=== PATIENT | female | born 1990 | race Caucasian/White ===

== ENCOUNTER 2018-01-30 16:31 | Emergency (ER) | payer MEDICAID, SELFPAY ==
[2018-01-30 16:32] VITALS: BP 108/74; PULSE 77; RESP 16; TEMP 36.8; O2SAT 96; BMI 25.0
--- NOTE | 2018-01-30 16:40 | RAD_ITS ---
STUDY: X-RAY - LEFT ANKLE REASON FOR EXAM: Female, 27 years old. Trauma TECHNIQUE: 3 view(s) of the ankle. COMPARISON: None. FINDINGS: Normal visualized distal tibia and fibula. Normal medial and lateral malleoli. Normal tibiotalar articulation and ankle mortise. Normal visualized talus and calcaneus. The visualized subtalar, talonavicular, calcaneocuboid and tarsal articulations are normal. There is soft tissue swelling over the lateral malleolus. RAD/Ankle min 3 Views IMPRESSION: There is no evidence of fracture or dislocation. There is soft tissue swelling over the lateral malleolus. Electronically Signed: Taran Garcia MD at 16:52 EDT , Service support ,
--- NOTE | 2018-01-30 17:38 | ED.DCSUM_ITS ---
- ER Visit Summary Date of Service: 01/30/18 Chief Complaint: Left ankle injury History of Present Illness: The patient is a 27 F presenting with left ankle injury. Patient states this occurred on Monday. She was running on a wet floor and slipped. She twisted her left ankle. She did not hit her head or lose consciousness. She has tried ibuprofen at home. She has had painful ambulation since. Denies other complaints. Physical Examination: Vitals are stable. Patient is afebrile. Alert no acute distress. HEENT exam is unremarkable. Lungs are clear and equal bilaterally. Heart is regular rate and rhythm. Extremities lateral ankle tenderness and swelling. No fifth metatarsal tenderness, no Achilles tendon tenderness, no proximal fibular tenderness. Skin is warm and dry. No focal neurologic deficit. Remainder of exam is unremarkable. Emergency Department Course and Treatment: X-ray left ankle shows there is no evidence of fracture or dislocation. There is soft tissue swelling over the lateral malleolus. She is advised to ice and elevate. She is given a boot orthosis. She is advised to follow-up with her primary care physician. Advised return to ED for worsening complaints. Disposition: Discharge home Impression: Left ankle sprain This note was generated with [employer] dictation software. It may contain incorrect words, spelling, and punctuation that were not noted in review of the chart prior to signing ED Disposition - Plan for ED Patient: Chief Complaint: Lower Extremity Injury Referrals: Yogi Moeller,Out of [Primary Care Provider] -
--- NOTE | 2018-01-30 17:38 | ED.DEP ---
ED Disposition - Plan for ED Patient: Chief Complaint: Lower Extremity Injury Instructions: ED Sprain Ankle W X Ray Prescriptions: Naproxen [Naprosyn] 500 mg PO BID PRN #20 tablet Referrals: [facility],Out of [Primary Care Provider] -
[2018-01-30 18:02] VITALS: BP 118/75; PULSE 82; RESP 16; O2SAT 98
== END 2018-01-30 18:03 | disposition home or self-care (01) ==
LOC: ED 17:46
PROVIDERS: Emergency Provider Emergency Medicine
DX: S93.402A Sprain of unspecified ligament of left ankle, initial encounter (principal); W01.0XXA Fall on same level from slipping, tripping and stumbling without subsequent striking against object, initial encounter; Y93.02 Activity, running; Y92.9 Unspecified place or not applicable
CPT/HCPCS: 73610; 99282

== ENCOUNTER → 2022-03-29 | Outpatient (CLI) | payer BC, MEDICAID, SELFPAY ==
[2022-03-29 15:03] LABS: Absolute Lymphocyte Count 1.56 X10^3/uL (0.83-4.51); Absolute Neutrophil Count 3.5 X10^3/uL (2.0-7.7); Basophil# 0.03 X10^3/uL; Basophil% 0.5 % (0-1); Eosinophil# 0.11 X10^3/uL; Hematocrit 36.7 % (37-47); Hemoglobin 11.7 g/dL (12.0-15.0); Lymphocyte # 1.56 X10^3/ul (0.83-4.51); Lymphocyte % 27.7 % (19-41); Mean Corp Hgb Conc 31.9 g/dL (32-36); Mean Corpuscular Volume 91.1 fL (81-99); Mean Platelet Vol. 9.8 fl (6.2-12.0); Monocyte# 0.41 X10^3/uL; Monocyte% 7.3 % (0-10); NRBC Flagged by Analyzer 0 % (0-5); Neutrophil # 3.51 X10^3/uL (2.7-7.7); Neutrophil % 62.3 % (47-70); Platelet Count 340 K/mm3 (150-450); RBC Distribution Width CV 14.1 % (11.6-14.6); RBC Distribution Width SD 47.4 fl (35.1-43.9); Red Blood Count 4.03 M/mm3 (4.2-5.4); White Blood Count 5.6 K/mm3 (4.4-11.0)
[2022-03-29 15:48] LABS: ALB/GLOB Ratio 1.1 RATIO (0.9-2.4); AST(SGOT) 13 U/L (15-37); Alanine Aminotransfer ALT/SGPT 21 U/L (13-56); Albumin, Serum 3.5 g/dL (3.2-5.0); Alkaline Phosphatase 65 U/L (45-117); Anion Gap 5 (5-15); BUN 12 mg/dL (7-18); BUN/Creat Ratio 17.8 RATIO (10-20); Chloride 108 mmol/L (98-107); Cholesterol 157 mg/dL (200); Creatinine, Serum 0.67 mg/dL (0.55-1.02); EST Glomerular Filtration Rate 107 mL/min (>60); Est Glom Filt Rate - Afr Amer 130 mL/min (>60); Globulin 3.3 g/dL (2.2-4.2); Glucose 76 mg/dL (74-106); High Density Lipoprotein 48 mg/dL; Potassium 3.8 mmol/L (3.5-5.1); Protein, Total 6.8 g/dL (6.4-8.2); Sodium Level 140 mmol/L (136-145); Thyroid Stim Hormone (TSH) 0.74 uIU/mL (0.358-3.74); Triglycerides 54 mg/dL; Very Low Density Lipoprotein 11 mg/dL (5-40)
[2022-03-29 15:54] LABS: Hemoglobin A1c 5.2 % (3.8-5.6)
[2022-03-30 21:54] LABS: Ferritin 51 ng/mL (8-252); Iron Binding Capacity,Total 293 ug/dL (250-450)
[2022-03-30 22:01] LABS: Vitamin B12 466 pg/mL (211-911)
== END | disposition home or self-care (01) ==
LOC: MFPLAB 11:47
PROVIDERS: PCP Family Medicine; Referring Provider Family Medicine; Visit Provider Family Medicine
DX: Z00.00 Encounter for general adult medical examination without abnormal findings (principal); D64.9 Anemia, unspecified; Z13.220 Encounter for screening for lipoid disorders; Z13.0 Encounter for screening for diseases of the blood and blood-forming organs and certain disorders involving the immune mechanism; Z13.1 Encounter for screening for diabetes mellitus; Z13.29 Encounter for screening for other suspected endocrine disorder
CPT/HCPCS: 36415; 80053; 80061; 82607; 82728; 83036; 83550; 84443; 85025

== ENCOUNTER → 2022-08-03 | Outpatient (CLI) | payer BC, MEDICAID, SELFPAY ==
[2022-08-15 16:14] LABS: HPV APTIMA, High Risk Negative (Negative); HPV Reflexed? YES, CHARGE PATIENT
== END | disposition home or self-care (01) ==
LOC: LABSPEC 17:51
PROVIDERS: PCP Family Medicine; Visit Provider Nurse Practitioner Family
DX: Z01.419 Encounter for gynecological examination (general) (routine) without abnormal findings (principal)
CPT/HCPCS: 87624; 88175; G0145

== ENCOUNTER → 2025-04-02 | Outpatient (CLI) | payer BC, SELFPAY ==
--- NOTE | 2025-04-02 17:10 | RAD_ITS ---
PROCEDURE: CHEST PA AND LATERAL 04/02/2025 REASON FOR EXAM: LYMPHADENOPATHY TECHNIQUE: CHEST PA AND LATERAL COMPARISON: None. FINDINGS: Hardware: None. Heart: No cardiomegaly. Mediastinum: Unremarkable. Lungs: Clear. No pleural effusion or pneumothorax. Bones: No acute bony abnormalities. RAD/Chest PA and Lateral IMPRESSION: No acute cardiopulmonary abnormalities. Reading Location: [id number]
[2025-04-02 18:12] LABS: AST(SGOT) 22 U/L (<=31); Alanine Aminotransfer ALT/SGPT 57 U/L (<=34); Albumin, Serum 4.5 g/dL (3.5-5.0); Alkaline Phosphatase 56 U/L (35-104); Anion Gap 12 (5-15); BUN 11 mg/dL (4-19); BUN/Creat Ratio 18.1 RATIO (10-20); Calcium,Total 9.0 mg/dL (7.6-11.0); Carbon Dioxide 22.6 mmol/L (21.0-32.0); Chloride 104 mmol/L (98-108); Globulin 2.8 g/dL (2.2-4.2); Glucose 94 mg/dL (70-99); Potassium 4.3 mmol/L (3.3-5.1)
[2025-04-02 18:57] LABS: Hematocrit 39.6 % (37-47); Hemoglobin 12.7 g/dL (12.0-15.0); Immature Granulocytes Count 0.020 X10^3/uL (0.0-0.0); Mean Corp Hgb Conc 32.1 g/dL (32-36); Mean Corpuscular Volume 89.6 fL (81-99); Mean Platelet Vol. 9.7 fl (6.2-12.0); NRBC Flagged by Analyzer 0 % (0-5); Platelet Count 318 K/mm3 (150-450); RBC Distribution Width CV 14.6 % (11.6-14.6); RBC Distribution Width SD 47.8 fl (35.1-43.9); Red Blood Count 4.42 M/mm3 (4.2-5.4); White Blood Count 7.4 K/mm3 (4.4-11.0)
== END | disposition home or self-care (01) ==
LOC: MTLAB 17:03
PROVIDERS: PCP Family Medicine; Referring Provider Family Medicine; Visit Provider Family Medicine
DX: R59.1 Generalized enlarged lymph nodes (principal)
CPT/HCPCS: 36415; 71046; 80053; 85025

== ENCOUNTER 2025-04-03 16:26 | Outpatient (CLI) | payer BC, SELFPAY ==
[2025-04-03 19:57] LABS: Hepatitis B Surface Antigen Nonreactive (Nonreactive); Hepatitis C Antibody Nonreactive (Nonreactive)
== END 2025-04-03 23:59 | disposition home or self-care (01) ==
LOC: MFPLAB 16:29
PROVIDERS: Family Medicine; PCP Family Medicine; Referring Provider Family Medicine; Visit Provider Family Medicine
DX: R79.89 Other specified abnormal findings of blood chemistry (principal)
CPT/HCPCS: 36415; 86706; 86803; 87340

== ENCOUNTER → 2025-04-10 | Outpatient (CLI) | payer BC, SELFPAY ==
--- OUTSIDE RECORDS SUMMARY | 2025-04-10 20:14 | XMS RPT_ITS | CCD ---
Author Organization [facility] Care Team Providers Care Explosive Operator Bomb Name Role Phone Unavailable Primary Care Provider UnavailDIPESH Aguilera Attending Unavailable Truid CARVAJAL, Dr. Shen Chapman Primary Care Provider [phone] Trudi CARVAJAL, Dr. Shen Chapman Attending Provider [phone] Dr. Shen Brush MD Referring Provider Sehn Brush Attending Unavailable Shen Brush Referring Unavailable Shen Brush Primary Care Unavailable Shen Brush Attending Unavailable Shen Brush Referring Unavailable Shen Brush Primary Care Unavailable Shen Brush Attending Unavailable Shen Brush Referring Unavailable Shen Brush Primary Care Unavailable Medications Current Medications Medication Drug Class(es) Dates Sig (Normalized) Sig (Original) Biotin (2 sources) BIOTIN ORAL Take by mouth. Active BIOTIN ORAL Take by mouth. 0 Active Comment on above: Take by mouth. ergocalciferol, vitamin D2, (VITAMIN D2 ORAL) (2 sources) ergocalciferol, vitamin D2, (VITAMIN D2 ORAL) Take by mouth. Active ergocalciferol, vitamin D2, (VITAMIN D2 ORAL) Take by mouth. 0 Active Comment on above: Take by mouth. hydrocortisone 10 mg/ml / neomycin 3.5 mg/ml / polymyxin b 24810 unt/ml otic suspension (1 source) Aminoglycoside Antibacterial, Polymyxin-class Antibacterial, Corticosteroid Start: 03-22-2025 End: 03-27-2025 ikzegyzc-xbetphelo-ln drocortisone (CORTISPORIN) 3.5-10,000-1 mg/mL-unit/mL-% otic suspension Use 4 drops in the right ear three times a day for 5 days. 10 mL 03/22/2025 03/27/2025 Active MULTI-VITAMIN ORAL (2 sources) MULTI-VITAMIN OR AL Take by mouth. Active MULTI-VITAMIN OR AL Take by mouth. 0 Active Comment on above: Take by mouth. naproxen 500 mg oral tablet (3 sources) Nonsteroidal Anti-inflammatory Drug Start: 01-31-20 18 take 1 tablet by mouth twice daily as needed Naproxen 500 MG tablet Active 500 mg PO TWICE DAILY NEEDED January 30, 2018 12:00am polymyxin b 21889 unt/ml / trimethoprim 1 mg/ml ophthalmic solution (1 source) Dihydrofolate Reductase Inhibitor Antibacterial, Polymyxin-class Antibacterial Start: 03-21-20 End: 03-28-20 take 1 drop(s) into the eye(s) four times daily trimethoprim-polymyxi n (POLYTRIM) 10,000 unit- 1 mg/mL ophthalmic solution Use 1 Drop in both eyes four times daily for 7 days. 10 mL 0 03/21/2023 03/28/2023 Active Comment on above: Use 1 Drop in both e yes four times daily for 7 days. spironolactone 100 mg oral tablet (2 sources) Aldosterone Antagonist take 1 tablet by mouth once daily spironolactone (ALDACTONE) 100 mg tablet Take 100 mg by mouth once daily. Active Comment on above: Take 100 mg by mouth once daily. tetrahydrozoline/polye thyl gly (EYE DROPS EXTRA OPHTHALMIC) (2 sources) tetrahydrozoline /poly ethyl gly (EYE DROPS EXTRA OPHTHALMIC) Use in eyes. Active tetrahydrozoline /polyethyl gly (EYE DROPS EXTRA OPHTHALMIC) Use in eyes. 0 Active Comment on above: Use in eyes. Problems Problem Classification Problem Date Documented Da te Episodic/Chronic Inflammation; infection of eye (except that caused by tuberculosis or sexually transmitteddisease) (1 source) Bilateral conjunctivitis; Translations: [Unspecified conjunctivitis] 03-21-2023 Episodic Lymphadenitis (4 sources) Lymphadenopathy; Translations: [Enlarged lymph nodes, unspecified] Onset: 03-22-2025 03-22-2025 Episodic Other ear and sense organ disorders (1 source) Impacted cerumen in right ear; Translations: [Impacted cerumen, right ear] 03-22-2025 Episodic Other ear and sense organ disorders (1 source) Impacted cerumen, right ear; Translations: [Impacted cerumen of right ear] Onset: 03-22-2025 Episodic Results Test Name Value Interpretation Reference Range Facility Hepatitis B Surface Antibody on 2025 HEP B Surf Ab REAC Normal [facility] Comment on above: Result Comment: <8.5 mIU/mL: Non-Reactive 8.5<= x <11.5 mIU/mL: Indeterminate >=11.5 mIU/mL: Reactive Non Reactive: Inconsistent with immunity less than <10 mIU/mL Reactive: Consistent with immunity greater than or equal to 10 mIU/mL Performed By: #### L 3890.6202, L3890.6102, L3890.6301 #### [facility] [address] [place], [address] Hepatitis C Antibodyon 04-03 Hepatitis C Ab Non-Reactive Normal Nonreactive [facility] Comment on above: Result Comment: Reac tive: Presumptive evidence of antibodies to HCV. Follow CDC recommendations for supplemental testing. Non-Reactive: Antibodies to HCV were not detected; does not exclude the possibility of exposure to HCV Reactive Results are presumptive evidence of antibodies to HCV. Follow CDC recommendations for supplemental testing. Order confirmation testing: HCV Quant by PCR testing - HCVPCR #[id number] Non Reactive: < 0.8 Equivocal: >/= 0.8 to < 1.0 Reactive: >/= 1.0 The CDC requires that a reactive/equivocal HCV antibody result be sent out for confirmation. HCV Quant by PCR testing. Performed By: #### L 3890.6202, L3890.6102, L3890.6301 #### [facility] [address] [facility] [place], [place], [id number] L3890.6102on 2025 HEP B Surf Ag Non-Reactive Normal Nonreactive [facility] Comment on above: Result Comment: Reac tive: Presumptive evidence of HBV. Repeatedly reactive samples must be confirmed using a neutralization test ([employer] HBsAg Confirmatory Test) Non-Reactive: HBsAg not detected; does not exclude the possibility of exposure to HBV Performed By: #### L 3890.6202, L3890.6102, L3890.6301 #### [facility] [address] [place], [place], [id number] Laboratory - Microbiology an d Antimicrobial susceptibilityOrdered By: Hao Erickson on 2025 HBV surface Ag Ql (S) Non-Reactive Nonreactive [facility] Comment on above: Reactive: Presumptiv e evidence of HBV. Repeatedly reactive samples must be confirmed using a neutralization test ([employer] HBsAg Confirmatory Test)Non-Reactive: HBsAg not detected; does not exclude the possibility of exposure to HBV Serum hepatitis B virus surf darshana antibody detectionOrdered By: Hao Erickson on 2025 HBV surface Ab Ql (S) REAC [facility] Comment on above: <8.5 mIU/mL: Non-Rebecca ctive8.5<= x <11.5 mIU/mL: Indeterminate>=11.5 mIU/mL: Reactive Non Reactive: Inconsistent with immunity less than <10 mIU/mL Reactive: Consistent with immunity greater than or equal to 10 mIU/mL Absolute lymphocyte countOrd ered By: Shen Brush on 04-02-2025 Lymphocytes Auto (Unsp spec) [#/Vol] 2.88 10*3/uL 0.83-4.51 [facility] Absolute neutrophil countOrd ered By: Shen Brush on 04-02-2025 Neutrophils (Bld) [#/Vol] 3.5 10*3/uL 2.0-7.7 [facility] Anion gap in Serum or Plasma Ordered By: Shen Brush on 04-02-2025 Anion gap [Moles/Vol] 12 mmol/L 12-26 [facility] Automated lymphocyte count a s percentage of total leukocytesOrdered By: Shen Brush on 04-02-2025 Lymphocytes/100 WBC Auto (Unsp spec) 39.1 % [facility] BUN/creatinine ratioOrdered By: Shen Brush on 04-02-2025 Urea nitrogen/Creatinine [Mass ratio] 18.1 mg/mg 06-02 [facility] Basophil percentageOrdered B y: Shen Brush on 04-02-2025 Basophils/100 WBC (Bld) 0.7 % 0-[address] [facility] Bilirubin, totalOrdered By: Shen Brush on 04-02-2025 Bilirubin [Mass/Vol] 0.31 mg/dL 0.00-1.[address] [facility] CBC W/Diff, Automatedon 03-15 Absolute Lymph 2.88 X10 3/uL Normal 0.83-4.51 [facility] Comment on above: Performed By: #### L 500.4050, L100.0100 #### [facility] [address] [place], [address] Absolute Neut 3.5 X10 3/uL Normal 2.0-7.7 [facility] Comment on above: Performed By: #### L 500.4050, L100.0100 #### [facility] [address] [place], [address] Basophils/100 WBC (Bld) 0.7 % Normal 0-[address] [facility] Comment on above: Performed By: #### L 500.4050, L100.0100 #### [facility] [address] [place], [address] Eosinophils/100 WBC (Bld) 4.3 % Normal 0-5 [facility] Comment on above: Performed By: #### L 500.4050, L100.0100 #### [facility] [address] [place], [address] Erythrocyte distribution width (RBC) [Ratio] 14.6 % Normal 11.6-14.6 [facility] Comment on above: Performed By: #### L 500.4050, L100.0100 #### [facility] [address] [place], [address] Hematocrit (Bld) [Volume fraction] 39.6 % Normal 37-47 [facility] Comment on above: Performed By: #### L 500.4050, L100.0100 #### [facility] [address] [place], [address] Hemoglobin (Bld) [Mass/Vol] 12.7 g/dL Normal 12.0-15.0 [facility] Comment on above: Performed By: #### L 500.4050, L100.0100 #### [facility] [address] [place], [address] IG% 0.300 Normal 0.0-0.9 [facility] Comment on above: Result Comment: IG% - Immature Granulocytes (promyelocytes, myelocytes and metamyelocytes) > 1% indicates that a LEFT SHIFT is Present. Performed By: #### L 500.4050, L100.0100 #### [facility] [address] [place], [address] Lymphocytes/100 WBC (Bld) 39.1 % Normal 19-41 [facility] Comment on above: Performed By: #### L 500.4050, L100.0100 #### [facility] [address] [place], [address] MCH (RBC) [Entitic mass] 28.7 pg Normal 27.0-32.0 [facility] Comment on above: Performed By: #### L 500.4050, L100.0100 #### [facility] [address] [place], [address] MCHC (RBC) [Mass/Vol] 32.1 g/dL Normal 32-36 [facility] Comment on above: Performed By: #### L 500.4050, L100.0100 #### [facility] [address] [place], [address] MCV (RBC) [Entitic vol] 89.6 fL Normal 81-99 [facility] Comment on above: Performed By: #### L 500.4050, L100.0100 #### [facility] [address] [place], [address] Monocytes/100 WBC (Bld) 8.0 % Normal 0-[address] [facility] Comment on above: Performed By: #### L 500.4050, L100.0100 #### [facility] [address] [place], [address] Neutrophils/100 WBC (Bld) 47.6 % Normal 47-70 [facility] Comment on above: Performed By: #### L 500.4050, L100.0100 #### [facility] [address] [place], [address] Nucleated RBC (Bld) [#/Vol] 0 10*3/uL Normal 0-5 [facility] Comment on above: Performed By: #### L 500.4050, L100.0100 #### [facility] [address] [place], [address] Platelet mean volume (Bld) [Entitic vol] 9.7 fL Normal 6.2-12.0 [facility] Comment on above: Performed By: #### L 500.4050, L100.0100 #### [facility] [address] [place], [address] Platelets (Bld) [#/Vol] 318 10*3/uL Normal 150-450 [facility] Comment on above: Performed By: #### L 500.4050, L100.0100 #### [facility] [address] [place], [address] RBC (Bld) [#/Vol] 4.42 10*6/uL Normal 4.2-5.4 [facility] Comment on above: Performed By: #### L 500.4050, L100.0100 #### [facility] [address] [place], [address] RDW SD 47.8 fl High 35.1-43.9 [facility] Comment on above: Performed By: #### L 500.4050, L100.0100 #### [facility] [address] [facility] [place], [address] WBC (Bld) [#/Vol] 7.4 10*3/uL Normal 4.4-11.0 [facility] Comment on above: Performed By: #### L 500.4050, L100.0100 #### [facility] [address] [facility] [place], [address] Carbon dioxide, total [Moles /volume] in Central venous bloodOrdered By: Shen Brush on 04-02-2025 CO2 [Moles/Vol] 22.6 mmol/L 21.0-32.0 [facility] Chest PA and Lateralon 04-02 Chest PA and Lateral [facility] [address] [place] [address] Chest PA and Lateral MR#: [id number] Acct: [id number] Name: KING JUNG Rep #: [id number] : 1990 F 34 From: Scott Christina MD PCP: Dr. Shen Brush MD Status: REG CLI Study: Chest PA and Lateral Date of Exam: 04/02/25 Exam# [id number] Ordering Dr: Shen Brush MD PROCEDURE: CHEST PA AND LATERAL 04/02/2025 REASON FOR EXAM: LYMPHADENOPATHY TECHNIQUE: CHEST PA AND LATERAL COMPARISON: None. FINDINGS: Hardware: None. Heart: No cardiomegaly. Mediastinum: Unremarkable. Lungs: Clear. No pleural effusion or pneumothorax. Bones: No acute bony abnormalities. RAD/Chest PA and Lateral IMPRESSION: No acute cardiopulmonary abnormalities. Reading Location: [facility] CC: Dr. Shen Brush MD Cash Register Mechanic: Signed Normal [facility] Chloride assayOrdered By: Linda Brush on 04-02-2025 Chloride [Moles/Vol] 104 mmol/L 98-[address] [facility] Comprehensive Metabolic Prof ilon 04-02-2025 Albumin [Mass/Vol] 4.5 g/dL Normal 3.5-5.0 [facility] Comment on above: Performed By: #### L 500.4050, L100.0100 #### [facility] [address] [place], [address] Albumin/Globulin [Mass ratio] 1.6 {ratio} Normal 0.9-2.4 [facility] Comment on above: Performed By: #### L 500.4050, L100.0100 #### [facility] [address] [place], [address] ALK PHOS 56 U/L Normal 35-104 [facility] Comment on above: Performed By: #### L 500.4050, L100.0100 #### [facility] [address] [place], [address] ALT [Catalytic activity/Vol] 57 U/L High <=34 [facility] Comment on above: Performed By: #### L 500.4050, L100.0100 #### [facility] [address] [place], [address] AST [Catalytic activity/Vol] 22 U/L Normal <=31 [facility] Comment on above: Performed By: #### L 500.4050, L100.0100 #### [facility] [address] [place], [address] Bilirubin [Mass/Vol] 0.31 mg/dL Normal 0.00-1.[address] [facility] Comment on above: Performed By: #### L 500.4050, L100.0100 #### [facility] [address] [place], [address] BUN/CRE 18.1 RATIO Normal 10-20 [facility] Comment on above: Performed By: #### L 500.4050, L100.0100 #### [facility] [address] [place], [address] Calcium [Mass/Vol] 9.0 mg/dL Normal 7.6-11.0 [facility] Comment on above: Performed By: #### L 500.4050, L100.0100 #### [facility] [address] [place], [address] Chloride [Moles/Vol] 104 mmol/L Normal 98-[address] [facility] Comment on above: Performed By: #### L 500.4050, L100.0100 #### [facility] [address] [place], [address] CO2 [Moles/Vol] 22.6 mmol/L Normal 21.0-32.0 [facility] Comment on above: Performed By: #### L 500.4050, L100.0100 #### [facility] [address] [place], [address] Creatinine [Mass/Vol] 0.62 mg/dL Low 0.70-1.20 [facility] Comment on above: Performed By: #### L 500.4050, L100.0100 #### [facility] [address] [place], [address] GAP 12 Normal 5-15 [facility] Comment on above: Performed By: #### L 500.4050, L100.0100 #### [facility] [address] [place], [address] GFR/1.73 sq M.predicted among non-blacks MDRD (S/P/Bld) [Vol rate/Area] 119 mL/min/{1.73_m2} Normal >60 [facility] Comment on above: Result Comment: mL/m in/1.73m2 CKD-EPI Creatinine Equation (2020) Performed By: #### L 500.4050, L100.0100 #### [facility] [address] [place], [address] Globulin (S) [Mass/Vol] 2.8 g/dL Normal 2.2-4.[address] [facility] Comment on above: Performed By: #### L 500.4050, L100.0100 #### [facility] [address] [place], [address] Glucose [Mass/Vol] 94 mg/dL Normal 70-99 [facility] Comment on above: Performed By: #### L 500.4050, L100.0100 #### [facility] [address] [place], [address] Potassium [Moles/Vol] 4.3 mmol/L Normal 3.3-5.1 [facility] Comment on above: Performed By: #### L 500.4050, L100.0100 #### [facility] [address] [place], [address] Sodium [Moles/Vol] 138 mmol/L Normal 133-145 [facility] Comment on above: Performed By: #### L 500.4050, L100.0100 #### [facility] [address] [place], [address] T PROT 7.2 g/dL Normal 5.9-8.4 [facility] Comment on above: Performed By: #### L 500.4050, L100.0100 #### [facility] [address] [place], [address] Urea nitrogen [Mass/Vol] 11 mg/dL Normal 4-19 [facility] Comment on above: Performed By: #### L 500.4050, L100.0100 #### [facility] [address] [place], [address] Eosinophil percentageOrdered By: Shen Brush on 04-02-2025 Eosinophils/100 WBC (Bld) 4.3 % 0-5 [facility] Erythrocyte distribution wid th ratioOrdered By: Shen Brush on 04-02-2025 Erythrocyte distribution width (RBC) [Ratio] 14.6 % 11.6-14.6 [facility] Erythrocyte distribution wid th standard deviationOrdered By: Shen Brush on 04-02-2025 Erythrocyte distribution width (RBC) [Ratio] 47.8 fl High 35.1-43.9 [facility] Glomerular filtration rate ( GFR) estimation/1.73 sq m using serum, plasma, or whole bOrdered By: Shen Brush on 04-02-2025 GFR/1.73 sq M.predicted among non-blacks MDRD (S/P/Bld) [Vol rate/Area] 119 mL/min/{1.73_m2} >60 [facility] Comment on above: mL/min/1.73m2 CKD-EP I Creatinine Equation (2020) Hematocrit Auto (Bld) [Volum e fraction]Ordered By: Shen Brush on 04-02-2025 Hematocrit (Bld) [Volume fraction] 39.6 % 37-47 [facility] Hemoglobin measurementOrdere d By: Shen Brush on 04-02-2025 Hemoglobin (Bld) [Mass/Vol] 12.7 g/dL 12.0-15.0 [facility] Immature granulocytes/100 WB C Auto (Bld)Ordered By: Shen Brush on 04-02-2025 Immature granulocytes/100 WBC (Bld) 0.300 % 0.0-0.9 [facility] Comment on above: IG% - Immature Granu locytes (promyelocytes, myelocytes and metamyelocytes) > 1% indicates that a LEFT SHIFT is Present. Laboratory - Chemistry and C hemistry - challengeOrdered By: Shen Brush on 04-02-2025 AST [Catalytic activity/Vol] 22 U/L <32 [facility] MCV (mean corpuscular volume ) determinationOrdered By: Shen Brush on 04-02-2025 MCV (RBC) [Entitic vol] 89.6 fL 81-[address] [facility] Mean corpuscular hemoglobin (MCH) determinationOrdered By: Shen Brush on 04-02-2025 MCH (RBC) [Entitic mass] 28.7 pg 27.0-32.0 [facility] Mean corpuscular hemoglobin concentration (MCHC) determinationOrdered By: Shen Brush on 04-02-2025 MCHC (RBC) [Mass/Vol] 32.1 g/dL 32-36 [facility] Mean platelet volume determi nationOrdered By: Shen Brush on 04-02-2025 Platelet mean volume (Bld) [Entitic vol] 9.7 fL 6.2-12.0 [facility] Monocyte percentageOrdered B y: Shen Brush on 04-02-2025 Monocytes/100 WBC (Bld) 8.0 % 0-[address] [facility] Neutrophil percentageOrdered By: Shen Brush on 04-02-2025 Neutrophils/100 WBC (Bld) 47.6 % 47-70 [facility] Nucleated red blood cell per centageOrdered By: Shen Brush on 04-02-2025 Nucleated RBC/100 WBC (Bld) [Ratio] 0 % 0-5 [facility] Platelet countOrdered By: Linda Brush on 04-02-2025 Platelets (Bld) [#/Vol] 318 10*3/uL 150-450 [facility] Potassium measurement (mass/ volume)Ordered By: Shen Brush on 04-02-2025 Potassium (Unsp spec) [Mass/Vol] 4.3 mmol/L 3.3-5.1 [facility] RBC Auto (Bld) [#/Vol]Ordere d By: Shen Brush on 04-02-2025 RBC (Bld) [#/Vol] 4.42 10*6/uL 4.2-5.4 [facility] Serum creatinine measurement (mass/volume)Ordered By: Shen Brush on 04-02-2025 Creatinine [Mass/Vol] 0.62 mg/dL Low 0.70-1.20 [facility] Serum globulin measurementOr dered By: Shen Brush on 04-02-2025 Globulin (S) [Mass/Vol] 2.8 g/dL 2.2-4.2 [facility] Serum glucose measurement (m ass/volume)Ordered By: Shen Brush on 04-02-2025 Glucose [Mass/Vol] 94 mg/dL 70-99 [facility] Serum or plasma alanine stephens otransferase (ALT) measurementOrdered By: Shen Brush on 04-02-2025 ALT [Catalytic activity/Vol] 57 U/L High <35 [facility] Serum or plasma albumin masoud urement (mass/volume)Ordered By: Shen Brush on 04-02-2025 Albumin [Mass/Vol] 4.5 g/dL 3.5-5.0 [facility] Serum or plasma albumin/glob ulin mass ratioOrdered By: Shen Brush on 04-02-2025 Albumin/Globulin [Mass ratio] 1.6 {ratio} 0.9-2.4 [facility] Serum or plasma alkaline shari sphatase measurementOrdered By: Shen Brush on 04-02-2025 ALP [Catalytic activity/Vol] 56 U/L 35-104 [facility] Serum or plasma calcium masoud urement (mass/volume)Ordered By: Shen Brush on 04-02-2025 Calcium [Mass/Vol] 9.0 mg/dL 7.6-11.0 [facility] Serum or plasma urea nitroge n measurement (mass/volume)Ordered By: Shen Brush on 04-02-2025 Urea nitrogen [Mass/Vol] 11 mg/dL 4-19 [facility] Sodium levelOrdered By: Shen Brush on 04-02-2025 Sodium [Moles/Vol] 138 mmol/L 133-145 [facility] Total proteinOrdered By: Phani Brush on 04-02-2025 Protein [Mass/Vol] 7.2 g/dL 5.9-8.4 [facility] White blood cell (WBC) count Ordered By: Shen Brush on 04-02-2025 WBC (Bld) [#/Vol] 7.4 10*3/uL 4.4-11.0 [facility] CNOVon 03-22-2025 CNOV Office Visit ([facility]) ---- KING JUNG ([id number]) 1990 F Date Time Provider Department 03/22/25 8:00 AM DIPESH VINCENT During your visit today, we recorded the following information about you: Temperature Pulse Respiration Blood pressure 98.5 degrees 80/minute 18/minute 110/72 Weight 74.1 kg Dipesh Vincent APRN.CNP 03/22/2025 9:01 AM Signed [facility] Subjective King Jung is a 34 year old female. Patient presents with: Neck Mass: Bumps on neck, swollen x 4 days HPI Swollen Lymph Node: - Noticed a swollen lymph node on the neck. - Denies pain associated with the lymph node. - Expressed concern about the possibility of cancer. Ear Pain: - Reports pain behind the ear, especially when wearing sunglasses. - Suspects the pain might be related to an ear infection. - Has not seen a primary care provider in a few years. Review of Systems Neck: (+) cervical lymph node swelling, (-) neck pain Ears/Nose/Mouth/Thr oat: (+) right ear pain Skin: (+) tender scalp lump Objective BP 110/72 Pulse 80 Temp 36.9 ?C (98.5 ?F) Resp 18 Wt 74.1 kg (163 lb 5.8 oz) LMP (LMP Unknown) SpO2 98% PAST MEDICAL HISTORY[1] No past surgical history on file. ALLERGIES Patient has no known allergies. MEDICATIONS neomycin-polymyxin- hydrocortisone (CORTISPORIN) 3.5-10,000-1 mg/mL-unit/mL-% otic suspension Use 4 drops in the right ear three times a day for 5 days. tetrahydrozoline/po lyethyl gly (EYE DROPS EXTRA OPHTHALMIC) Use in eyes. (Patient not taking: Reported on 03/22/2025) spironolactone (ALDACTONE) 100 mg tablet Take 100 mg by mouth once daily. (Patient not taking: Reported on 07/15/2022) ergocalciferol, vitamin D2, (VITAMIN D2 ORAL) Take by mouth. (Patient not taking: Reported on 03/22/2025) MULTI-VITAMIN ORAL Take by mouth. (Patient not taking: Reported on 03/22/2025) BIOTIN ORAL Take by mouth. (Patient not taking: Reported on 03/22/2025) FAMILY HISTORY[2] SOCIAL HISTORY[3] Physical Exam Constitutional: General: She is not in acute distress. Appearance: Normal appearance. She is normal weight. She is not ill-appearing or toxic-appearing. HENT: Head: Normocephalic and atraumatic. Right Ear: Tympanic membrane, ear canal and external ear normal. There is impacted cerumen. Left Ear: Tympanic membrane, ear canal and external ear normal. Ears: Comments: Cerumen impaction removal from MA Normal TM Nose: No congestion or rhinorrhea. Mouth/Throat: Mouth: Mucous membranes are moist. Pharynx: No oropharyngeal exudate or posterior oropharyngeal erythema. Eyes: Extraocular Movements: Extraocular movements intact. Conjunctiva/sclera: Conjunctivae normal. Pupils: Pupils are equal, round, and reactive to light. Cardiovascular: Rate and Rhythm: Normal rate and regular rhythm. Pulses: Normal pulses. Heart sounds: Normal heart sounds. Pulmonary: Effort: Pulmonary effort is normal. Breath sounds: Normal breath sounds. Musculoskeletal: Cervical back: Normal range of motion and neck supple. No rigidity or tenderness. Lymphadenopathy: Cervical: Cervical adenopathy present. Neurological: Mental Status: She is alert. { 1. Swollen lymph nodes (R59.9) - Lymphadenopathy likely reactive to recent viral illness or sinus infection; nodes are soft, mobile, and non-tender. - Discussed that persistent lymphadenopathy (>2 weeks) may warrant ultrasound; advised follow-up with primary care if swelling persists. - Educated on low likelihood of malignancy given current presentation. 2. Impacted cerumen of right ear (H61.21) - Significant cerumen impaction in right ear; no evidence of otitis media after irrigation. - Performed cerumen removal via irrigation. - Start ear drops as prescribed. - Advised use of Tylenol or ibuprofen for discomfort; symptoms expected to improve in 3-4 days. - Advised follow-up with primary care if symptoms persist. and Recording using [employer] software for draft documentation of the visit was discussed with the patient/authorized front desk representative; all questions welcomed and answered. Patient/authorized front desk representative agreed to proceed Disposition The patient was discharged. Patient well appearing nontoxic in no acute distress 34 year old female that presents with cerumen impaction, and viral upper respiratory infection with lymphadenopathy. Ear irrigated without difficult, ear drops prescribed. No signs of strep, negative PCR testing, no POT HOLDER BINDER, or acute cardiopulmonary process. Follow up with with PCP if lymph node swelling persist for longer than two weeks. Patient verbalized understanding and in agreement with plan. [1] No past medical history on file. [2] No family history on file. [3] Social History Tobacco Use Smoking status: Never Smokeless tobacco: Never Scott ArceliaKIET 03/22/2025 9:14 AM Signed Ambulatory Ear Lavage Pre (more content not included)... Normal [facility] STREP A MOLECULAR (POC)on Procedural Control Valid [facility] Strep A (POCT) Negative Negative [facility] Vital Signs Date Time Vital Sign Value Performing Clinician Faci lity 03-22-2025 08:22-0400 Body temperature 98.49 [degF] Dipesh Swank CRIB TENDER.[facility] Work Phone: [facility] 03-22-2025 08:22-0400 Body weight 74.1 kg Dipesh Swank CRIB TENDER.AGENCY TRAINER Work Phone: [facility] 03-22-2025 08:22-0400 Diastolic blood pressure 72 mm[Hg] Dipesh Swank CRIB TENDER.AGENCY TRAINER Work Phone: [facility] 03-22-2025 08:22-0400 Heart rate 80 /min Dipesh Swank CRIB TENDER.AGENCY TRAINER Work Phone: [facility] 03-22-2025 08:22-0400 Respiratory rate 18 /min Dipesh Swank CRIB TENDER.AGENCY TRAINER Work Phone: [facility] 03-22-2025 08:22-0400 SaO2% (BldA) [Mass fraction] 98 % Dipesh Swank CRIB TENDER.AGENCY TRAINER Work Phone: [facility] 03-22-2025 08:22-0400 Systolic blood pressure 110 mm[Hg] Dipesh Swank CRIB TENDER.AGENCY TRAINER Work Phone: [facility] 03-21-2023 10:58-0400 Body temperature 97.7 [degF] Mary Medina CRIB TENDER.AGENCY TRAINER Work Phone: [facility] 03-21-2023 10:58-0400 Body weight 80.74 kg Mary Praisler-Wood CRIB TENDER.AGENCY TRAINER Work Phone: [facility] 03-21-2023 10:58-0400 Diastolic blood pressure 68 mm[Hg] Mary Praisler-Wood CRIB TENDER.AGENCY TRAINER Work Phone: [facility] 03-21-2023 10:58-0400 Heart rate 87 /min Mary Praisler-Wood CRIB TENDER.AGENCY TRAINER Work Phone: [facility] 03-21-2023 10:58-0400 Respiratory rate 18 /min Mary Praisler-Wood CRIB TENDER.AGENCY TRAINER Work Phone: [facility] 03-21-2023 10:58-0400 SaO2% (BldA) [Mass fraction] 98 % Mary Praisler-Wood CRIB TENDER.AGENCY TRAINER Work Phone: [facility] 03-21-2023 10:58-0400 Systolic blood pressure 118 mm[Hg] Mary Praisler-Wood CRIB TENDER.AGENCY TRAINER Work Phone: [facility] Encounters Encounter Date Encounter Type Care Provider Facility Start: 04-11-2025 ambulatory Shen Brush [facility] Start: 04-09-2025 Encounter for genera l adult medical examination without abnormal findings Shen Brush [facility] Start: 2025 End: [address] Shen Brush MD Work Phone: -[facility] Start: 2025 End: [address] Shen Brush MD -[facility] Start: 04-02-2025 End: [address] Shen Brush MD Work Phone: -[facility] Start: 04-02-2025 End: 04-02-[address] Shen Brush MD -[facility] Work Phone: Start: 04-02-2025 End: 04-02-2025 ambulatory Shen Brush Facility:[facility] Start: 03-22-2025 End: 03-22-2025 ambulatory DIPESH VINCENT Facility:[facility] Start: 03-22-2025 End: 03-22-2025 Patient encounter procedure Dipesh Vincent LIZA.AGENCY TRAINER Work Phone: [facility] Comment on above: Swollen lymph nodes (Primary Dx); Impacted cerumen of right ear Start: 03-21-2023 End: 03-21-2023 Patient encounter procedure Mary Medina APRN.AGENCY TRAINER Work Phone: [facility] Comment on above: Conjunctivitis of jt th eyes, unspecified conjunctivitis type (Primary Dx) Start: 08-03-2022 End: 08-03-2022 ambulatory [facility] Work Phone: Start: 08-03-2022 End: 08-03-2022 Patient encounter procedure [facility]-Laboratory, Specimen Procedures Date Procedure Procedure Detail Performing Clinician Start: 2025 Hep[address] C antibody measurement Dr. Shen Brush MD Work Phone: Comment on above: Reactive: Presumptiv e evidence of antibodies to HCV. Follow CDC recommendations for supplemental testing.Non-Reactive: Antibodies to HCV were not detected; does not exclude the possibility of exposure to HCVReactive Results are presumptive evidence of antibodies to HCV. Follow CDC recommendations for supplemental testing.Order confirmation testing: HCV Quant by PCR testing - HCVPCR #[id number] Non Reactive: < 0.8 Equivocal: >/= 0.8 to < 1.0 Reactive: >/= 1.0The CDC requires that a reactive/equivocal HCV antibody result be sent out for confirmation. HCV Quant by PCR testing. Start: 04-02-2025 X-ray of chest, PA a nd lateral views Dr. Shen Brush MD Work Phone: Start: 03-22-2025 Iadna streptococcus group a amplified probe tq Tianna Mccray APRN.AGENCY TRAINER Work Phone: Plan of Treatment Date Care Activity Detail Author Start: 04-14-2025 Influenza vaccination Influenza Vacc ine (#1) [facility] Start: 04-14-2023 Influenza vaccination INFLUENZA (#1) [facility] Start: 08-14-2022 DEPRESSION ASSESSMENT DEPRESSION ASS ESSMENT [facility] Start: 2019 HPV TESTING HPV TESTING [facility] Start: 08-21-2018 PAP TESTING PAP TESTING [facility] Start: 08-21-2016 Screening for malign ant neoplasm of cervix Cervical Cancer Screening [facility] Start: 2016 HPV Vaccine (1 - 3-d ose SCDM series) HPV Vaccine (1 - 3-dose SCDM series) [facility] Start: 2008 Hepatitis B Vaccine (1 of 3 - 19+ 3-dose series) Hepatitis B Vaccine (1 of 3 - 19+ 3-dose series) [facility] Start: 2008 Urine microalbumin profile [facility] Start: 2007 Anxiety Screening Anxiety Screening [facility] Start: 2007 Depression Screening Depression Scre ening [facility] Start: 1989 COVID-19 VACCINE (#1) COVID-19 VACCI NE (#1) [facility] Start: 1989 HEPATITIS B (1 of 3 - 3-dose series) HEPATITIS B (1 of 3 - 3-dose series) [facility] Path report.final Dx Spec [facility] Work Phone: Payers Date Payer Category Payer Self-pay [id number] 2022 Medicaid [employer] [id number] 2022-Present [phone] [place] [address] Medicaid [id number] 2020 Blue Cross Blue Shield BLUE CARD PPO OOS Member Subscriber Plan / Payer (Effective 2020-Present) Name: KING JUNG Relation to Subscriber: Spouse Name: KAMRAN JUNG Date of : 1985 (Home) Address: [address] [place] [address] Payer ID: [id number] (NAIC) Group ID: Not on file Type: PPO Address: [address] [place] [id number] 2020 Unknown STEPH BLUE CARD PPO OOS [id number] 2020-Present [phone] [address] [place] [address] PPO [id number] 2020 Unknown [id number] Unknown [id number] Unknown [id number] Unknown [id number] Unknown [id number] Social History Date Type Detail Facility Start: 01-30-2018 Tobacco smoking stat us ARIS Unknown if ever smoked [facility] Work Phone: Start: 1990 Sex Assigned At Female [facility] Start: 01-30-2018 End: 07-15-2022 Tobacco smoking status NHIS Never smoked tobacco [facility] Start: 07-15-2022 Tobacco use and exposure Smokeless tobacco non-user [facility] Start: 04-27-2021 End: 03-21-2023 History of Social function [facility] Start: 04-27-2021 End: 03-21-2023 Tobacco use panel [facility] Start: 03-01-2015 National Score (1-100), lower number is lower risk Not on file [facility] Start: 1989 Sex Assigned At Not on file [facility] Radiology Diagnostic study note 04-02-2025 Note Date & Type Note Facility 04-02-2025 Radiology Diagnostic study note [facility] Services [address] [place], [place] [id number] Chest PA and Lateral MR#: [id number] Acct: [id number] Name: KING JUNG Rep #: [id number] : 1990 F 34 From: Viral Christina MD PCP: Dr. Shen Brush MD Status: RE G CLI Study:Chest PA and Lateral Date of Exam: 04/02/25 Exam# [id number] Ordering Dr: Shen Brush MD PROCEDURE: CHEST PA AND LATERAL 04/02/2025 REASON FOR EXAM: LYMPHADENOPATHY TECHNIQUE: CHEST PA AND LATERAL COMPARISON: None. FINDINGS: Hardware: None. Heart: No cardiomegaly. Mediastinum: Unremarkable. Lungs: Clear. No pleural effusion or pneumothorax. Bones: No acute bony abnormalities. RAD/Chest PA and Lateral IMPRESSION: No acute cardiopulmonary abnormalities. Reading Location: [facility] CC: Dr. Shen Brush MD ~ Cash Register Mechanic: Signed [facility] History of Present illness Narrative 03-22-2025 Arcelia Zaidi MA - 03/22/2025 9:13 AM Dipesh Drew APRN.CNP - 03/22/2025 8:40 AM EDT Note Date & Type Note Facility 03-22-2025 History of Presen t illness Narrative Ambulatory Ear Lavage Pre-treatment: Warm water Treatment: Right ear Equipment and Irrigation solution and Volume used: Single use syringe with single use irrigation tip Water Return flow appearance: Brown Patient tolerated procedure: yes Tympanic membrane assessment: Tympanic membrane assessed by LIP pre and post procedure Dipesh Vincent APRN. AGENCY TRAINER [facility] King Jung is a 34 year old female. Patient presents with: Neck Mass: Bumps on neck, swollen x 4 days HPI Swollen Lymph Node: - Noticed a swollen lymph node on the neck. - Denies pain associated with the lymph node. - Expressed concern about the possibility of cancer. Ear Pain: - Reports pain behind the ear, especially when wearing sunglasses. - Suspects the pain might be related to an ear infection. - Has not seen a primary care provider in a few years. Review of Systems Neck: (+) cervical lymph node swelling, (-) neck pain Ears/Nose/Mouth/Throat: (+) right ear pain Skin: (+) tender scalp lump Objective BP 110/72 Pulse 80 Temp 36.9 C (98.5 F) Resp 18 Wt 74.1 kg (163 lb 5.8 oz) LMP (LMP Unknown) SpO2 98% PAST MEDICAL HISTORY[1] No past surgical history on file. ALLERGIES Patient has no known allergies. MEDICATIONS igmzxayl-lszhuqvqx-varfntuzhhdsmo (CORTISPORIN) 3.5-10,000-1 mg/mL-unit/mL-% otic suspension Use 4 drops in the right ear three times a day for 5 days. tetrahydrozoline/polyethyl gly (EYE DROPS EXTRA OPHTHALMIC) Use in eyes. (Patient not taking: Reported on 03/22/2025) spironolactone (ALDACTONE) 100 mg tablet Take 100 mg by mouth once daily. (Patient not taking: Reported on 07/15/2022) ergocalciferol, vitamin D2, (VITAMIN D2 ORAL) Take by mouth. (Patient not taking: Reported on 03/22/2025) MULTI-VITAMIN ORAL Take by mouth. (Patient not taking: Reported on 03/22/2025) BIOTIN ORAL Take by mouth. (Patient not taking: Reported on 03/22/2025) FAMILY HISTORY[2] SOCIAL HISTORY[3] Physical Exam Constitutional: General: She is not in acute distress. Appearance: Normal appearance. She is normal weight. She is not ill-appearing or toxic-appearing. HENT: Head: Normocephalic and atraumatic. Right Ear: Tympanic membrane, ear canal and external ear normal. There is impacted cerumen. Left Ear: Tympanic membrane, ear canal and external ear normal. Ears: Comments: Cerumen impaction removal from MA Normal TM Nose: No congestion or rhinorrhea. Mouth/Throat: Mouth: Mucous membranes are moist. Pharynx: No oropharyngeal exudate or posterior oropharyngeal erythema. Eyes: Extraocular Movements: Extraocular movements intact. Conjunctiva/sclera: Conjunctivae normal. Pupils: Pupils are equal, round, and reactive to light. Cardiovascular: Rate and Rhythm: Normal rate and regular rhythm. Pulses: Normal pulses. Heart sounds: Normal heart sounds. Pulmonary: Effort: Pulmonary effort is normal. Breath sounds: Normal breath sounds. Musculoskeletal: Cervical back: Normal range of motion and neck supple. No rigidity or tenderness. Lymphadenopathy: Cervical: Cervical adenopathy present. Neurological: Mental Status: She is alert. { 1. Swollen lymph nodes (R59.9) - Lymphadenopathy likely reactive to recent viral illness or sinus infection; nodes are soft, mobile, and non-tender. - Discussed that persistent lymphadenopathy (>2 weeks) may warrant ultrasound; advised follow-up with primary care if swelling persists. - Educated on low likelihood of malignancy given current presentation. 2. Impacted cerumen of right ear (H61.21) - Significant cerumen impaction in right ear; no evidence of otitis media after irrigation. - Performed cerumen removal via irrigation. - Start ear drops as prescribed. - Advised use of Tylenol or ibuprofen for discomfort; symptoms expected to improve in 3-4 days. - Advised follow-up with primary care if symptoms persist. and Recording using [employer] software for draft documentation of the visit was discussed with the patient/authorized front desk representative; all questions welcomed and answered. Patient/authorized front desk representative agreed to proceed Disposition The patient was discharged. Patient well appearing nontoxic in no acute distress 34 year old female that presents with cerumen impaction, and viral upper respiratory infection with lymphadenopathy. Ear irrigated without difficult, ear drops prescribed. No signs of strep, negative PCR testing, no POT HOLDER BINDER, or acute cardiopulmonary process. Follow up with with PCP if lymph node swelling persist for longer than two weeks. Patient verbalized understanding and in agreement with plan. [1] No past medical history on file. [2] No family history on file. [3] Social History Tobacco Use Smoking status: Never Smokeless tobacco: Never documented in this encounter [facility] Progress note 03-22-2025 Note Date & Type Note Facility 03-22-2025 Note HNO ID: [id number] Author: ARCELIA ZAIDI MA Service: ? Author Type: Machine Veneer Repairer Type: Progress Notes Filed: 03/22/2025 09:14 Note Text: Ambulatory Ear Lavage Pre-treatment: Warm water Treatment: Right ear Equipment and Irrigation solution and Volume used: Single use syringe with single use irrigation tip Water Return flow appearance: Brown Patient tolerated procedure: yes Tympanic membrane assessment: Tympanic membrane assessed by LIP pre and post procedure Dipesh Vincent APRN. CNP [facility] Progress note 03-22-2025 Note Date & Type Note Facility 03-22-2025 Note HNO ID: [id number] Author: DIPESH VINCENT APRN.CNP Service: ? Author Type: Nurse Practitioner Type: Progress Notes Filed: 03/22/2025 09:01 Note Text: [facility] Usama Jung is a 34 year old female. Patient presents with: Neck Mass: Bumps on neck, swollen x 4 days HPI Swollen Lymph Node: - Noticed a swollen lymph node on the neck. - Denies pain associated with the lymph node. - Expressed concern about the possibility of cancer. Ear Pain: - Reports pain behind the ear, especially when wearing sunglasses. - Suspects the pain might be related to an ear infection. - Has not seen a primary care provider in a few years. Review of Systems Neck: (+) cervical lymph node swelling, (-) neck pain Ears/Nose/Mouth/Throat: (+) right ear pain Skin: (+) tender scalp lump Objective BP 110/72 Pulse 80 Temp 36.9 ?C (98.5 ?F) Resp 18 Wt 74.1 kg (163 lb 5.8 oz) LMP (LMP Unknown) SpO2 98% PAST MEDICAL HISTORY[1] No past surgical history on file. ALLERGIES Patient has no known allergies. MEDICATIONS awhatrhh-mwuemjskz-aulofmoplagyow (CORTISPORIN) 3.5-10,000-1 mg/mL-unit/mL-% otic suspension Use 4 drops in the right ear three times a day for 5 days. tetrahydrozoline/polyethyl gly (EYE DROPS EXTRA OPHTHALMIC) Use in eyes. (Patient not taking: Reported on 03/22/2025) spironolactone (ALDACTONE) 100 mg tablet Take 100 mg by mouth once daily. (Patient not taking: Reported on 07/15/2022) ergocalciferol, vitamin D2, (VITAMIN D2 ORAL) Take by mouth. (Patient not taking: Reported on 03/22/2025) MULTI-VITAMIN ORAL Take by mouth. (Patient not taking: Reported on 03/22/2025) BIOTIN ORAL Take by mouth. (Patient not taking: Reported on 03/22/2025) FAMILY HISTORY[2] SOCIAL HISTORY[3] Physical Exam Constitutional: General: She is not in acute distress. Appearance: Normal appearance. She is normal weight. She is not ill-appearing or toxic-appearing. HENT: Head: Normocephalic and atraumatic. Right Ear: Tympanic membrane, ear canal and external ear normal. There is impacted cerumen. Left Ear: Tympanic membrane, ear canal and external ear normal. Ears: Comments: Cerumen impaction removal from MA Normal TM Nose: No congestion or rhinorrhea. Mouth/Throat: Mouth: Mucous membranes are moist. Pharynx: No oropharyngeal exudate or posterior oropharyngeal erythema. Eyes: Extraocular Movements: Extraocular movements intact. Conjunctiva/sclera: Conjunctivae normal. Pupils: Pupils are equal, round, and reactive to light. Cardiovascular: Rate and Rhythm: Normal rate and regular rhythm. Pulses: Normal pulses. Heart sounds: Normal heart sounds. Pulmonary: Effort: Pulmonary effort is normal. Breath sounds: Normal breath sounds. Musculoskeletal: Cervical back: Normal range of motion and neck supple. No rigidity or tenderness. Lymphadenopathy: Cervical: Cervical adenopathy present. Neurological: Mental Status: She is alert. { 1. Swollen lymph nodes (R59.9) - Lymphadenopathy likely reactive to recent viral illness or sinus infection; nodes are soft, mobile, and non-tender. - Discussed that persistent lymphadenopathy (>2 weeks) may warrant ultrasound; advised follow-up with primary care if swelling persists. - Educated on low likelihood of malignancy given current presentation. 2. Impacted cerumen of right ear (H61.21) - Significant cerumen impaction in right ear; no evidence of otitis media after irrigation. - Performed cerumen removal via irrigation. - Start ear drops as prescribed. - Advised use of Tylenol or ibuprofen for discomfort; symptoms expected to improve in 3-4 days. - Advised follow-up with primary care if symptoms persist. and Recording using [employer] software for draft documentation of the visit was discussed with the patient/authorized front desk representative; all questions welcomed and answered. Patient/authorized front desk representative agreed to proceed Disposition The patient was discharged. Patient well appearing nontoxic in no acute distress 34 year old female that presents with cerumen impaction, and viral upper respiratory infection with lymphadenopathy. Ear irrigated without difficult, ear drops prescribed. No signs of strep, negative PCR testing, no POT HOLDER BINDER, or acute cardiopulmonary process. Follow up with with PCP if lymph node swelling persist for longer than two weeks. Patient verbalized understanding and in agreement with plan. [1] No past medical history on file. [2] No family history on file. [3] Social History Tobacco Use Smoking status: Never Smokeless tobacco: Never [facility] History of Present illness Narrative 03-21-2023 Mary Medina APRN.[facility] - 03/21/2023 11:07 AM EDT Note Date & Type Note Facility 03-21-2023 History of Presen t illness Narrative Subjective Eye Problem Associated symptoms include congestion. Pertinent negatives include no chills, fever or rash. King Jung is a 32 year old female who presents with eye redness for the past 24 hours. She has a history of allergies. Eyes have been red and itchy and increased watering. She has been using Patanol eye drops without relief. She denies foreign body sensation or photophobia or visual changes. She has current nasal congestion due to allergies. Review of Systems Constitutional: Negative for chills and fever. HENT: Positive for congestion. Eyes: Positive for redness. Negative for blurred vision, double vision, photophobia, pain and discharge. Respiratory: Negative. Cardiovascular: Negative. Skin: Negative for itching and rash. BP 118/68 Pulse 87 Temp 36.5 C (97.7 F) Resp 18 Wt 80.7 kg (178 lb) LMP (LMP Unknown) SpO2 98% No past medical history on file. No past surgical history on file. ALLERGIES Patient has no known allergies. MEDICATIONS tetrahydrozoline/polyethyl gly (EYE DROPS EXTRA OPHTHALMIC) Use in eyes. ergocalciferol, vitamin D2, (VITAMIN D2 ORAL) Take by mouth. MULTI-VITAMIN ORAL Take by mouth. BIOTIN ORAL Take by mouth. spironolactone (ALDACTONE) 100 mg tablet Take 100 mg by mouth once daily. (Patient not taking: Reported on 07/15/2022) No family history on file. Social History Tobacco Use Smoking status: Never Smokeless tobacco: Never Objective Physical Exam Vitals and nursing note reviewed. Constitutional: General: She is not in acute distress. Appearance: Normal appearance. She is not ill-appearing. HENT: Right Ear: Tympanic membrane, ear canal and external ear normal. Left Ear: Tympanic membrane, ear canal and external ear normal. Nose: Congestion present. Mouth/Throat: Pharynx: Uvula midline. Eyes: General: Lids are normal. Vision grossly intact. Gaze aligned appropriately. No allergic shiner. Conjunctiva/sclera: Right eye: Right conjunctiva is injected. No chemosis, exudate or hemorrhage. Left eye: Left conjunctiva is injected. No chemosis, exudate or hemorrhage. Pupils: Pupils are equal, round, and reactive to light. Cardiovascular: Rate and Rhythm: Normal rate. Pulmonary: Effort: Pulmonary effort is normal. Musculoskeletal: Cervical back: Neck supple. Lymphadenopathy: Cervical: No cervical adenopathy. Skin: General: Skin is warm and dry. Findings: No erythema or rash. Neurological: Mental Status: She is alert. ASSESSMENT/PLAN: 1. Conjunctivitis of both eyes, unspecified conjunctivitis type - ICD9: 372.30, ICD10: H10.9 - see medication orders - Instructed to see eye doctor if concerns or if symptoms persist. - Follow-up with your PCP in 3-5 days if symptoms have not improved or sooner if symptoms worsen - Discussed red flags and need for immediate medical evaluation if any occur. - Discussed supportive care treatment with fluids, rest and analgesia. - Discussed expected course of illness Mary Medina APRN.AGENCY TRAINER documented in this encounter [facility] Instructions 03-21-2023 Patient Instructions Note Date & Type Note Facility 03-21-2023 Instructions Mary Medina APRN.AGENCY TRAINER - 03/21/2023 11:05 AM EDT ASSESSMENT/PLAN: 1. Conjunctivitis of both eyes, unspecified conjunctivitis type - ICD9: 372.30, ICD10: H10.9 - see medication orders - Instructed to see eye doctor if concerns or if symptoms persist. - Follow-up with your PCP in 3-5 days if symptoms have not improved or sooner if symptoms worsen - Discussed red flags and need for immediate medical evaluation if any occur. - Discussed supportive care treatment with fluids, rest and analgesia. - Discussed expected course of illness Mary Medina APRN.[place]ORT[place] CONJUNCTIVITIS GENERAL INFORMATION: Conjunctivitis is also known as pink eye. It is an irritation of the underside of the eyelid and the white part of the eye. Conjunctivitis can be caused by infection, chemical irritation, or allergy. If infectious, it is very contagious. INSTRUCTIONS: The doctor has prescribed antibiotic drops or ointment. Use them as prescribed. Do not touch the dropper to the eye. Throw out the medication after completing treatment. If the doctor only prescribed the medication to be placed in one eye, and the other eye starts to bother you with the same symptoms, you may treat it in the same fashion. To ease discomfort, apply a warm or cool clean washcloth to your eye several times a day for 10 to 20 minutes. Gently wipe away discharge from the eyes with tissues. Wash your hands often with soap and use paper towels to dry them. Do not share towels, washcloths, or pillows. This could spread infection. Do not use eye make-up until the infection has resolved. Keep contact lenses out of eyes until the irritation is gone. Discard any eye make-up which you may have contaminated before the infection was diagnosed, and any eye make-up older than one year. Children should not return to school or daycare until the eye is no longer pink. Do not drive or operate machinery if your vision is blurred. Wear sunglasses if your eyes are sensitive to the light. CONTACT YOUR DOCTOR IF YOU OR YOUR CHILD NOTICE: *The eye is still pink 3 days after starting treatment with medicine. *Pain in the eye increases. *The redness is spreading. *Vision becomes blurred. *You have a temperature over 100.5 F (38 C). documented in this encounter [facility] Evaluation note Note Date & Type Note Facility Evaluation note No assessment information availa [facility] Work Phone: Evaluation note Note Date & Type Note Facility Evaluation note Diagnosis Conjunctivitis of both eyes, unspecified conjunctivitis type- Primary documented in this encounter [facility] Evaluation note Note Date & Type Note Facility Evaluation note Diagnosis Swollen lymph nodes- Primary Enlargement of lymph nodes Impacted cerumen of right ear Impacted cerumen documented in this encounter [facility] Reason for referral (narrative) Note Date & Type Note Facility Reason for referral (narrative) No reason for referral information available [facility] Work Phone: Advance Directives No Advanced Directives Records Found Advance Directive Response Recorded Date/ Time Living Will No January 30, 2018 4:31pm Power of Display Mechanic No January 30 8 4:31pm Summary Purpose Family History No Family History Records FoundNo Family History Records Found Chief Complaint and Reason for Visit Chief Complaint Admit Date lymphadenopathy April 02, 2025 5: 00pm Additional Source Comments Goals (unrecognized section and content) Goals may be documented in a n alternate sectionGoals may be documented in an alternate sectionGoals may be documented in an alternate section Source Comments (unrecognize d section and content) In the event this informatio n is protected by the Federal Confidentiality of Alcohol and Drug Abuse Patient Records regulations: The Federal rules restrict any use of the information to criminally investigate or prosecute any alcohol or drug abuse patient[facility] event this information is protected by the Federal Confidentiality of Alcohol and Drug Abuse Patient Records regulations: The Federal rules restrict any use of the information to criminally investigate or prosecute any alcohol or drug abuse patient.[facility] Reason for Visit (unrecogniz ed section and content) Reason Comments Eye Problem Pt reported bilatera l eye irritation , x1 day. Reason Comments Neck Mass Bumps on neck, swoll en x 4 days INFORMATION SOURCE (unrecogn ized section and content) DATE CREATED AUTHOR 03/24/2025 [facility] DATE CREATED AUTHOR AUTHOR'S ORGANIZ ATION 04/09/2025 [facility] Care Teams (unrecognized sec tion and content) Team Status: Active Member Role/Relationship Status Dates Dr. Shen Brush MD Primary Care Provider Active Team Status: Inactive Member Role/Relationship Status Dates Dr. Shen Brush MD Primary Care Provider Active Start: April 02, 2025 End: April 02, 2025 Dr. Shen Brush MD Attending Provider Active Start: April 02, 2025 End: April 02, 2025 Dr. Shen Brush MD Referring Provider Active Start: April 02, 2025 End: April 02, 2025 Team Status: Active Member Role/Relationship Status Dates Dr. Shen Brush MD Primary Care Provider Active Start: 2025 Dr. Shen Brush MD Attending Provider Active Start: 2025 Dr. Shen Brush MD Referring Provider Active Start: 2025 Team Status: Inactive Member Role/Relationship Status Dates Dr. Shen Brush MD Primary Care Provider Active Start: 2025 End: 2025 Dr. Shen Brush MD Attending Provider Active Start: 2025 End: 2025 Dr. Shen Brush MD Referring Provider Active Start: 2025 End: 2025 FOR RECORDS PERTAINING TO PATIENTS WHO ARE OR HAVE BEEN ENROLLED IN A CHEMICAL DEPENDENCY/SUBSTANCEABUSE PROGRAM, SOME INFORMATION MAY BE OMITTED. This clinical summary was aggregated from multiple sources. Caution should be exercised in using it in the provision of clinical care. This summary normalizes information from multiple sources, and as a consequence, information in this document may materially change the coding, format and clinical context of patient data. In addition, data may be omitted in some cases. CLINICAL DECISIONS SHOULD BE BASED ON THE PRIMARY CLINICAL RECORDS. [facility]. provides no warranty or guarantee of the accuracy or completeness of information in this document.
[2025-04-16 12:09] LABS: HPV APTIMA, High Risk Negative (Negative)
== END | disposition home or self-care (01) ==
LOC: LABSPEC 15:58
PROVIDERS: PCP Family Medicine
DX: Z12.72 Encounter for screening for malignant neoplasm of vagina (principal)
CPT/HCPCS: 87624; 88175; G0145

== ENCOUNTER → 2025-04-11 | Outpatient (CLI) | payer BC, SELFPAY ==
--- NOTE | 2025-04-11 14:56 | US_ITS ---
PROCEDURE: HEAD/NECK SOFT TISSUE 04/11/2025 REASON FOR EXAM: LYMPHADENOPATHY, ULTRASOUND OF BILATERAL NECK AND OCCIPITAL LYMPH TECHNIQUE: Procedure Code: USH/N SOFT Modality: US Procedure: HEAD/NECK SOFT TISSUE COMPARISON: None. FINDINGS: In the RIGHT posterior neck region of clinical concern/reported palpable abnormality, there is a lobulated hypoechoic nodular structure measuring 19 x 24 x 6 mm consistent with a lymph node. There is relative effacement of the normal fatty hilum which is still present. Adjacent lesion in the RIGHT posterior neck measures 16 x 4 x 8 mm without a preserved fatty hilum. Additional similar-appearing structure within the RIGHT neck measures 15 x 4 x 10 mm. Additional similar appearing structure in the RIGHT neck measures 26 x 8 x 12 mm. Additional structure in the RIGHT inferior neck supraclavicular region with preserved fatty hilum otherwise similar in appearance measures 10 x 5 x 10 mm. Additional similar- appearing structure in the RIGHT submandibular region measures 25 x 12 x 25 mm. Additional similar appearing structure in the RIGHT submandibular region measures 17 x 10 x 13 mm. In the LEFT posterior neck region of clinical concern/reported palpable abnormality, there is a an ovoid hypoechoic probable lymph node without a clearly preserved fatty hilum measuring 14 x 5 x 9 mm. Additional similar appearing structure with a preserved fatty hilum in the LEFT posterior neck measures 8 x 12 x 3 mm. Additional similar-appearing structure without a clearly preserved fatty hilum in the LEFT lateral neck measures 12 x 3 x 2 mm. Additional similar appearing structure in the LEFT submandibular region with a preserved fatty hilum measures 16 x 26 x 13 mm. Additional similar appearing structure in the LEFT submandibular region measures 13 x 19 x 13 mm. Additional similar- appearing structure in the LEFT submandibular region without a clearly preserved fatty hilum measures 12 x 14 x 13 mm. Additional similar appearing structure in the LEFT submandibular region with a clearly preserved fatty hilum measures 15 x 6 x 8 mm. Additional similar-appearing structure without a clearly preserved fatty hilum in the LEFT submandibular region measures 8 x 4 x 8 mm. Additional similar appearing lesion in the LEFT lower neck/supraclavicular region measures 15 by 5 x 9 mm without a clearly preserved fatty hilum. A 5 x 4 x 5 mm RIGHT lobe thyroid cyst is not suspicious. US/Head/Neck Soft Tissue IMPRESSION: Bilateral cervical lymphadenopathy as described, nonspecific and potentially re active in the absence of known malignancy. Correlate with medical history and recommend follow-up to ensure stability or r esolution. Reading Location: [id number]
== END | disposition home or self-care (01) ==
LOC: US 14:54
PROVIDERS: PCP Family Medicine; Referring Provider Family Medicine; Visit Provider Family Medicine
DX: R59.1 Generalized enlarged lymph nodes (principal)
CPT/HCPCS: 76536

== ENCOUNTER → 2025-04-21 | Outpatient (CLI) | payer BC, SELFPAY ==
--- NOTE | 2025-04-21 14:21 | US_ITS ---
PROCEDURE: PELVIC W/ TRANSVAGINAL 04/21/2025 REASON FOR EXAM: OVARIAN PAIN TECHNIQUE: Procedure Code: USPELTVAG Modality: US Procedure: PELVIC W/ TRANSVAGINAL COMPARISON: None FINDINGS: Measurements: Uterus: 12.4 x 6.8 x 6.3cm with a volume of 280 mL Endometrial Thickness: 5 mm Right Ovary: 3.0 x 2.6 x 2.3cm with a volume of 9. mL. Left Ovary: 5.8 x 4.8 x 5.1 cm with a volume of 75 mL. Uterus: The uterus is anteverted. There are multiple nabothian cysts seen. Endometrium: The endometrium appears hyperechoic. Right ovary: There is a right ovarian cyst measuring 5.6 x 4.7 x 3.7 cm. The cyst has internal echoes but no definitive solid component. There is flow within the testicle. Left ovary: Size contour and echogenicity are within normal limits. There is blood flow within the ovary. Other: Urinary bladder measures 11.3 x 12.2 x 8.3 cm. Urinary bladder volume is 594 mL. Contour and echogenicity are within normal limits. There are no filling defects seen. Bladder wall appears smooth. There is no free fluid in the cul-de-sac. US/Pelvic w/ Transvaginal IMPRESSION: There is a cystic mass involving the right ovary. It does have some internal e choes. Follow-up pelvic ultrasound in 6 weeks is recommended for re-evaluation. Reading Location: [id number]
== END | disposition home or self-care (01) ==
PROVIDERS: PCP Family Medicine
DX: N94.89 Other specified conditions associated with female genital organs and menstrual cycle (principal)
CPT/HCPCS: 76830; 76856

== ENCOUNTER → 2025-05-24 | Outpatient (CLI) | payer BC, SELFPAY ==
--- NOTE | 2025-05-24 09:07 | US_ITS ---
PROCEDURE: HEAD/NECK SOFT TISSUE 05/24/2025 REASON FOR EXAM: LYMPHADENOPATHY TECHNIQUE: Procedure Code: USH/N SOFT Modality: US Procedure: HEAD/NECK SOFT TISSUE COMPARISON: March 2025. FINDINGS: Grayscale and color Doppler images obtained of the soft tissue neck. Right-side: There are numerous mildly enlarged lymph nodes including in the right submandibular space with short axis dimension of 1.2 cm and slightly increased vascular flow. Compared to prior exam relatively stable. In the left-sided neck largest in the submandibular space are also numerous cervical lymph nodes largest has a short axis dimension of 1.1 cm with increased hilar flow. This is also relatively stable. Remainder of the adjacent soft tissues negative. US/Head/Neck Soft Tissue IMPRESSION: Stable mild cervical adenosis. After symptoms resolve repeat CT of the neck with contrast may be helpful. Reading Location: [id number]
== END | disposition home or self-care (01) ==
LOC: US 09:04
PROVIDERS: PCP Family Medicine; Referring Provider Family Medicine; Visit Provider Family Medicine
DX: R59.1 Generalized enlarged lymph nodes (principal)
CPT/HCPCS: 76536

== ENCOUNTER → 2025-06-02 | Outpatient (CLI) | payer BC, SELFPAY ==
--- NOTE | 2025-06-02 16:03 | US_ITS ---
PROCEDURE: PELVIC W/ TRANSVAGINAL REASON FOR EXAM: PAIN IN OVARIES, BILATERAL TECHNIQUE: Procedure Code: USPELTVAG Modality: US Procedure: PELVIC W/ TRANSVAGINAL COMPARISON: April 21, 2025. FINDINGS: Measurements: Uterus: 12.7 cm x 7.8 cm x 5.5 cm with a volume of 285.4 mL Endometrial Thickness: 4 mm. It is hyperechoic. Small amount of fluid is seen within the endometrial cavity. Right Ovary: 3.2 cm x 2.7 cm x 2.6 cm with a volume of 12.2 mL. Left Ovary: 6.9 cm x 6.5 cm x 5.1 cm with a volume of 120.6 mL. TRANSABDOMINAL: Uterus: Normal size, myometrial echotexture, and contour. Endometrium: Unremarkable. Right ovary: Normal size and echotexture. Left ovary: 5.5 cm 5.9 cm 3.9 cm cyst in the left ovary with low-level echoes within it. This is essentially unchanged. Clinical follow-up recommended. Transvaginal sonography was performed to better visualize the endometrium. TRANSVAGINAL: Uterus: Anteverted. Normal contour and myometrial echotexture. Endometrium: Normal echotexture. Right ovary: Normal size and echotexture. Left ovary: 5.5 cm 5.9 cm 3.9 cm complex cyst in the left ovary. Clinical correlation recommended. Other adnexal findings: None. Cul-de-sac: No free intraperitoneal fluid identified. Tenderness: No tenderness US/Pelvic w/ Transvaginal IMPRESSION: Essentially stable complex cyst in the left ovary. Clinical correlation recomm ended. Reading Location: [facility]
== END | disposition home or self-care (01) ==
LOC: US 15:53
PROVIDERS: PCP Family Medicine; Referring Provider Family Medicine; Visit Provider Family Medicine
DX: N94.89 Other specified conditions associated with female genital organs and menstrual cycle (principal)
CPT/HCPCS: 76830; 76856